=== PATIENT | male | born 1990 | race Caucasian/White ===

== ENCOUNTER 2024-09-17 14:28 | Emergency (ER) | payer BC, SELFPAY ==
--- NOTE | ~2024-09-17 | XR_ITS ---
CHEST RADIOGRAPH, PA AND LATERAL CLINICAL HISTORY: AMS . COMPARISON: 09/21/2007 TECHNIQUE: PA and lateral views of the chest. FINDINGS The cardiomediastinal silhouette is unremarkable. The lungs are clear. Vail rods within the thoracic spine. Remaining visualized osseous structures and soft tissues are unremarkable. IMPRESSION: No focal infiltrate or effusion. Reviewed, dictated and finalized at location A. THETIST
--- NOTE | ~2024-09-17 | CT_ITS ---
CT brain wo con Ordering provider: Frieda Mishra PA-C History: 34 years Male with . AMS . Comparison: May 13, 2010 Technique: CT of the head without contrast. Radiation reduction technique utilized.The dose-length product was 681 mGy-cm. FINDINGS: BRAIN PARENCHYMA AND CSF SPACES: Old lacunar infarct in the right basal ganglia. CT abdomen No midlin e shift, mass effect or hemorrhage. The brain parenchyma and CSF spaces are otherwise normal. VISUALIZED PARANASAL SINUSES: Bilateral ethmoid sinus disease. MASTOIDS: Well aerated. BONES: The bones appear intact. SOFT TISSUES: Visualized nasopharynx is normal. Superficial soft tissues are normal. IMPRESSION: No acute intracranial findings. Reviewed, dictated and finalized at location A. E MACHINE TENDER
[2024-09-17 14:52] VITALS: BP 141/94; PULSE 60; RESP 16; TEMP 37.2; O2SAT 100
--- NOTE | 2024-09-17 14:55 | ED_ITS ---
HPI - Skin/Abscess/Foreign Bdy General Chief complaint: Skin/Abscess/Foreign Body <Frieda Mishra PA-C - Last Filed: 09/17/24 15:39> Stated complaint: cellulitits/staph infection all over <Frieda Mishra PA-C - Last Fi led: 09/17/24 15:39> Time Seen by Provider: 09/17/24 14:55 <Frieda Mishra PA-C - Last Filed: 09/17/24 15:39> Focused HPI:34-year-old male presents to the emergency department for concerns for cellulitis. Patient presents with multiple wounds throughout his extremities for over a year. States he has been following with his PCP and has been prescribed antibiotic ointment to put in his nose due to concerns for MRSA infection. States he has not been prescribed any antibiotics or other treatments. States the wounds are painful more than they are itchy. States he lives at home alone. No one else in his family or friends has similar symptoms. 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 States he has been trying to not pick at the lesions. GENERAL: Well-appearing, well-nourished, and in no acute distress. HEAD: Normocephalic, atraumatic. CHEST: Clear to auscultation. ?No respiratory distress. SKIN: Multiple small wounds throughout upper and lower extremities in various healing stages with surrounding excoriations. No evidence of infection including induration or fluctuation, drainage. No wounds or lesions in the webspaces of the hands HEART: Regular rate and rhythm.? NEURO: ?Alert and oriented x3. Patient screened in triage and initial orders placed.? ?Additional care and disposition to be based upon?diagnostic testing and treatment. 34-year-old male presents to emergency department for lesions to his upper and lower extremities for over a year. Wounds are in various he stages of healing. Concern for drug use/skin, however patient denies this. Also denies use of drugs. Given length of lesions will attempt permethrin for possible scabies. Lesions do not appear to be infected. He was instructed to wash all his bedding and clothes in hot water and to place all of his other belongings in trash bags outside for 2 weeks. He was advised to follow-up with his PCP and return precautions were discussed. Upon receiving discharge paperwork, patient is now reporting incoherence x1 month. States he has seen his PCP for this but does not have any answers. He is wanting to be seen for years. He again denies drug use. Denies recent medication changes, head injury or trauma <Frieda Mishra PA-C - Last Filed: 09/17/24 15:39> History of Present Illness HPI narrative: Agree with HPI <Gilson Bland MD - Last Filed: 09/17/24 20:05> Related Data Allergies/Adverse reactions: Allergies Allergy/AdvReac Type Severity Reaction Status Date / Time loracarbef Allergy Unknown Unknown Verified 12/15/21 11:15 ZIPRASIDONE HCL Allergy Mild Uncoded 12/15/21 11:15 ZIPRASIDONE MESYLATE Allergy Mild Uncoded 12/15/21 11:15 <Frieda Mishra PA-C - Last Filed: 09/17/24 15:39> Review of Systems Review of Systems: All systems reviewed & are unremarkable except as noted in HPI and below <Frieda Mishra PA-C - Last Filed: 09/17/24 15:39> PMFSH Past Medical History Medical History: Medical History (Updated 09/17/24 @ 20:04 by Gilson Bland MD) Hypertension Hyperlipidemia Bipolar disorder <Frieda Mishra PA-C - Last Filed: 09/17/24 15:39> Surgical History Surgical History: Surgical History (Updated 09/17/24 @ 20:02 by Gilson Bland MD) H/O Spinal surgery <Frieda Mishra PA-C - Last Filed: 09/17/24 15:39> Exam Narrative: GENERAL: Well-appearing, well-nourished, and in no acute distress. HEAD: Normocephalic, atraumatic. ENT: Mucous membranes moist. NECK: Supple. CHEST: Clear to auscultation. No respiratory distress. HEART: Regular rate and rhythm. Normal peripheral pulses. EXTREMITIES: Normal range of motion. No edema. SKIN: Warm, dry, multiple pick or bite lesions the arms and legs NEURO: Alert and oriented x3. PSYCH: Normal mood and affect. <Gilson Bland MD - Last Filed: 09/17/24 20:05> Course Course Emergency Course: patient is not altered. He does have psych issues. He needs follow-up with his PCP. CT of the brain unremarkable as was chest x-ray. Will not continue any blood or urine testing. Encouraged him use the permethrin that was prescribed. Reports dog's losing here around its size, discussed with him this may be evidence of infection to the dog as well no dog should be should be treated for scabies. They may want to also treat the dog for fleas as they only do this intermittently. <Gilson Bland MD - Last Filed: 09/17/24 20:05> Vital Signs Vital signs: Vital Signs Temperature 99 F 09/17/24 14:52 Pulse Rate 60 09/17/24 14:52 Respiratory Rate 16 09/17/24 14:52 Blood Pressure 141/94 H 09/17/24 14:52 Pulse Oximetry 100 09/17/24 14:52 Oxygen Delivery Room Air 09/17/24 14:52 Temperature 99 F 09/17/24 14:52 Pulse Rate 60 09/17/24 14:52 Respiratory Rate 16 09/17/24 14:52 Blood Pressure 141/94 H 09/17/24 14:52 Pulse Oximetry 100 09/17/24 14:52 Oxygen Delivery Room Air 09/17/24 14:52 <Frieda Mishra PA-C - Last Filed: 09/17/24 15:39> Vital Signs Temperature 99 F 09/17/24 14:52 Pulse Rate 60 09/17/24 14:52 Respiratory Rate 16 09/17/24 14:52 Blood Pressure 141/94 H 09/17/24 14:52 Pulse Oximetry 100 09/17/24 14:52 Oxygen Delivery Room Air 09/17/24 14:52 Temperature 99 F 09/17/24 14:52 Pulse Rate 60 09/17/24 14:52 Respiratory Rate 16 09/17/24 14:52 Blood Pressure 141/94 H 09/17/24 14:52 Pulse Oximetry 100 09/17/24 14:52 Oxygen Delivery Room Air 09/17/24 14:52 <Gilson Bland MD - Last Filed: 09/17/24 20:05> MDM - Skin/Abscess/Foreign Bdy Imaging Data Radiologist's impression: ITS Impressions Head CT 09/17/24 16:22 IMPRESSION: No acute intracranial findings. Chest X-Ray 09/17/24 16:25 IMPRESSION: No focal infiltrate or effusion. <Gilson Bland MD - Last Filed: 09/17/24 20:05> Discharge Plan Discharge Clinical Impression: Scabies <Frieda Mishra PA-C - Last Filed: 09/17/24 15:39> Patient Disposition: Home, Self-Care <Frieda Mishra PA-C - Last Filed: 09/17/24 15:39> Condition: Stable <Frieda Mishra PA-C - Last Filed: 09/17/24 15:39> Instructions: Antibiotic Form <TANYA Vinson Last Filed: 09/17/24 15:39> Additional Instructions: Please use the cream as directed and leave on for 8-12 hours before washing off. Wash all of your linens and clothes in hot water. Anything that is on wash double place and a large plastic trash bag, closed and placed at outside for 2 weeks. Closely with her primary care provider. Return to the emergency department if you develop new or worsening symptoms, fever or other concerning symptoms. <Frieda Mishra PA-C - Last Filed: 09/17/24 15:39> Patient Language: Grenadian <Frieda Mishra PA-C - Last Filed: 09/17/24 15:39> Prescriptions: New permethrin 5 % cream 1 applic topical Q14D Qty: 60 0RF Rx Instructions: apply cream everywhere and leave on for 12 hours prior to showering. Apply the second treatment 14 days after first treatment if live lice remain. <Frieda Mishra PA-C - Last Filed: 09/17/24 15:39> Follow-up/Referrals: PHYSICIAN,AUTOMATIC LEHR OPERATOR [Non-Staff] - 1 Week <TANYA Vinson Last Filed: 09/17/24 15:39>
[2024-09-17 20:22] VITALS: BP 115/74; PULSE 59; RESP 14; O2SAT 98
== END 2024-09-17 20:29 | disposition home or self-care (01) ==
PROVIDERS: Emergency Provider Emergency Medicine; PCP Nurse Practitioner
DX: B86 Scabies (principal)
CPT/HCPCS: 70450; 71046; 99284